=== PATIENT | female | born 1955 | race Caucasian/White ===

== ENCOUNTER → 2023-05-07 08:40 | Outpatient (REF) | payer OTHER, SELFPAY ==
[2023-05-10 16:16] LABS: Babesia microti IgG < 1:16 (< 1:16); Babesia microti IgM <1:20 (<1:20)
== END ==
LOC: REG 08:40
PROVIDERS: ATTENDING PHYSICIAN Nurse Practitioner Family
DX: S30.861A Insect bite (nonvenomous) of abdominal wall, initial encounter (principal)
CPT/HCPCS: 36415; 86753

== ENCOUNTER → 2023-05-21 12:59 | Outpatient (REF) | payer OTHER, SELFPAY | LOC: HWWDC 12:59 | PROVIDERS: ATTENDING PHYSICIAN Obstetrics & Gynecology; FAMILY PHYSICIAN Nurse Practitioner Primary Care | DX: Z12.31 Encounter for screening mammogram for malignant neoplasm of breast (principal) | CPT/HCPCS: 77063; 77067 ==

== ENCOUNTER → 2024-01-02 10:11 | Outpatient (REF) | payer OTHER, SELFPAY | LOC: RAD 10:11 | PROVIDERS: ATTENDING PHYSICIAN Nurse Practitioner Primary Care | DX: I10 Essential (primary) hypertension (principal); E26.9 Hyperaldosteronism, unspecified; R91.1 Solitary pulmonary nodule | CPT/HCPCS: 71250 ==

== ENCOUNTER → 2024-07-16 12:58 | Outpatient (REF) | payer SELFPAY | LOC: HWRAD 12:58 | PROVIDERS: ATTENDING PHYSICIAN Nurse Practitioner Primary Care; REFERRING PHYSICIAN Internal Medicine | DX: E78.2 Mixed hyperlipidemia (principal) | CPT/HCPCS: 75571 ==